=== PATIENT | male | born 1985 | race Hispanic/Latino ===

== ENCOUNTER 2021-07-06 13:45 | Emergency (ER) | payer SELFPAY ==
[~2021-07-06] VITALS: Ht 165.1 cm; Wt 63.6 kg
[2021-07-06 13:46] VITALS: BP 115/65
[2021-07-06] MEDS ORDERED: ACETAMINOPHEN 500 MG TAB PO ONE (16:40)
--- NOTE | 2021-07-06 17:15 | REP ---
INDICATION: R inguinal hernia. COMPARISON: None. TECHNIQUE: Real-time sonographic evaluation of the right inguinal canal FINDINGS: An oval-shaped soft tissue densities seen within the right inguinal canal consistent with an inguinal testicle. Numerous echogenic foci are seen within this testicle consistent with microlithiasis. There is a large amount of adipose tissue seen in the inguinal canal which is seen to increased with Valsalva. No abnormal bowel is present. IMPRESSION: Right inguinal testicle and increased adipose tissue as described above. 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 If the finding today represents a non descended testicle than there is an increased risk for developing neoplasm. <Electronically signed by Morgan Hernández > 07/06/21 [id number]
[2021-07-06 17:44] LABS: BASO # 0.1 10^3/uL (0.0-0.2); BASO % 1.4 % (0.0-1.0); EOS # 0.3 10^3/uL (0.0-0.5); EOS % 6.2 % (0.0-3.0); HEMATOCRIT 44.8 % (42.0-52.0); HEMOGLOBIN 14.8 g/dl (13.5-17.5); LYMPH # 1.6 10^3/uL (1.5-5.0); LYMPH % 30.9 % (24.0-44.0); MEAN CORPUSCULAR HEMOGLOBIN 29.8 pg (27.0-33.0); MEAN CORPUSCULAR VOLUME 90.3 fl (80.0-96.0); MONO # 0.5 10^3/uL (0.0-0.8); MONO % 10.6 % (2.0-8.0); NEUTROPHILS # 2.6 10^3/uL (1.5-8.5); NEUTROPHILS % 50.7 % (36.0-66.0); PLATELET COUNT, AUTOMATED 291 10^3/uL (150-450); RED BLOOD COUNT 4.96 10^6/uL (4.30-6.10)
[2021-07-06 18:17] LABS: ALBUMIN 3.8 GM/DL (3.2-5.2); ALT/SGPT 34 U/L (12-78); BILIRUBIN,DIRECT 0.1 MG/DL (0.0-0.2); BILIRUBIN,TOTAL 0.4 MG/DL (0.2-1.0); BLOOD UREA NITROGEN 14 MG/DL (7-18); CALCIUM LEVEL 8.9 MG/DL (8.5-10.1); CARBON DIOXIDE LEVEL 28 MEQ/L (21-32); CHLORIDE LEVEL 105 MEQ/L (98-107); CREATININE FOR GFR 0.83 MG/DL (0.70-1.30); GLOMERULAR FILTRATION RATE > 60.0 (>60); GLUCOSE, FASTING 90 MG/DL (70-100); LIPASE 68 U/L (73-393); POTASSIUM SERUM 3.9 MEQ/L (3.5-5.1); SODIUM LEVEL 139 MEQ/L (136-145); TOTAL PROTEIN 7.1 GM/DL (6.4-8.2)
--- NOTE | 2021-07-08 12:06 | ED PDOC ---
Post-Departure Follow-Up pelvic us faxed to jazmyne donaldson and florecita for fu Jacqueline Garcia MD Jul 08, 2021 12:06
== END 2021-07-06 20:44 | disposition home or self-care (01) ==
LOC: M ED 13:45
DX: Q53.112 Unilateral inguinal testis (principal); N50.89 Other specified disorders of the male genital organs; N50.811 Right testicular pain